=== PATIENT | female | born 1950 | race Caucasian/White ===

== ENCOUNTER 2021-09-28 09:30 | Outpatient (CLI) | payer MEDICARE ==
[~2021-09-28 09:30] MED LIST: Iopamidol 300 61% 100 ML VIAL FS ONE
== END 2021-09-28 09:31 | disposition home or self-care (01) ==
LOC: CSHULT 09:30
PROVIDERS: ATTEND Student in an Organized Health Care Education/Training Program
DX: R93.5 Abnormal findings on diagnostic imaging of other abdominal regions, including retroperitoneum (principal)
CPT/HCPCS: 74170; 82565

== ENCOUNTER 2021-11-06 08:47 | Outpatient (CLI) | payer MEDICARE | END 2021-11-06 08:48 | disposition home or self-care (01) | LOC: CSHMAMMO 08:47 | PROVIDERS: ATTEND Student in an Organized Health Care Education/Training Program | DX: R92.2 Inconclusive mammogram (principal) | CPT/HCPCS: 76642; 77065; G0279 ==